=== PATIENT | female | born 1955 | race Caucasian/White ===

== ENCOUNTER 2018-10-15 04:23 | Observation (INO) | payer OTHER ==
[2018-10-15] MEDS ORDERED: NA CHLORIDE 0.9% 1,000 ML ONE (04:50)
[2018-10-15] MEDS ORDERED: ASPIRIN 81 MG CHEWABLE TABLET ONE (04:50)
[2018-10-15 04:54] LABS: Absolute Lymphocytes (CBC) 2.5 K/uL (0.7-4.9); Absolute Monocytes 0.6 K/uL (0.1-1.3); Absolute Neutrophil 4.6 K/uL (1.8-8.0); Basophils % 0.8 % (0-1.3); Eosinophils % 1.9 % (0-4.4); Hematocrit 39.8 % (36.0-45.0); Lymphocytes % 31.2 % (15.3-44.8); MPV 8.6 fL (7.6-11.3); Monocytes % 7.8 % (3.3-12.3); RBC Red Blood Cell Count 4.64 M/uL (3.86-4.86)
[2018-10-15 04:55] LABS: Protime INR 0.94
[2018-10-15 05:12] LABS: ALT/SGPT 27 U/L (12-78); AST/SGOT 13 U/L (15-37); Albumin 3.5 g/dL (3.4-5.0); Alkaline Phosphatase 111 U/L (45-117); BUN Blood Urea Nitrogen 27 mg/dL (7-18); Bicarbonate 30 mmol/L (21-32); Bilirubin Direct 0.1 mg/dL (0-0.2); Bilirubin Total 0.3 mg/dL (0.2-1.0); Glucose Level 138 mg/dL (74-106); Lipase 336 U/L (73-393); Magnesium 1.8 mg/dL (1.8-2.4); NT PRO-BNP 17 pg/mL (<125); Potassium 3.6 mmol/L (3.5-5.1); Protein, Total 7.3 g/dL (6.4-8.2); Sodium Level 141 mmol/L (136-145); Troponin (Emerg Dept Use Only) < 0.02 ng/mL (0.0-0.045)
--- NOTE | 2018-10-15 05:25 | EDPHYS ---
Physician Documentation [facility] Name: Mamie Jolly Age: 62 yrs Sex: Female : 1955 Arrival Date: 10/15/2018 Time: 04:24 Bed 2 Private MD: Chi Montiel V ED Physician Jorge Carrasco HPI: 10/15 05:18 This 62 yrs old Female presents to ER via Wheelchair with complaints of Chest karon Pain. 05:18 The patient or guardian reports chest pain that is located primarily in the anterior karon chest wall, left. Onset: 1 day(s) ago. The pain radiates to Associated signs and symptoms: The patient has no apparent associated signs or symptoms. The chest pain is described as sharp. Severity of pain: At its worst the pain was moderate. The patient has experienced similar episodes in the past, several times. Historical: - Allergies: 04:55 HORSE/EQUINE PRODUCT DERIVATIVES; lp1 - Home Meds: 04:55 gabapentin oral oral twice a day [Active]; omeprazole 40 mg Oral cpDR 1 cap once daily lp1 [Active]; atorvastatin 80 mg oral tab 1 tab once daily [Active]; levothyroxine 50 mcg tab 1 tab once daily [Active]; duloxetine 60 mg oral cpDR 1 cap once daily [Active]; Saxenda 3 mg/0.5 mL (18 mg/3 mL) subcutaneous pnij once daily [Active]; Celebrex 200 mg Oral cap 2 cap once daily [Active]; tizanidine 4 mg oral tab 1 tab every 8 hours for Muscle Spasm [Active]; Restasis ophthalmic ophthalmic [Active]; - PMHx: 04:55 Hypothyroidism; neuropathy; Hyperlipidemia; Diabetes - IDDM; lp1 - PSHx: 04:55 Knee surgery; D \T\ C; Removal of thyroid tumor; lp1 - Immunization history:: Adult Immunizations up to date. - Social history:: Smoking status: Patient/guardian denies using tobacco. - Ebola Screening: : No symptoms or risks identified at this time. ROS: 05:22 Constitutional: Negative for fever, chills, and weight loss, Eyes: Negative for injury, karon pain, redness, and discharge, ENT: Negative for injury, pain, and discharge, Neck: Negative for injury, pain, and swelling, Abdomen/GI: Negative for abdominal pain, nausea, vomiting, diarrhea, and constipation, Back: Negative for injury and pain, : Negative for injury, bleeding, discharge, and swelling, MS/Extremity: Negative for injury and deformity, Skin: Negative for injury, rash, and discoloration, Neuro: Negative for headache, weakness, numbness, tingling, and seizure, Psych: Negative for depression, anxiety, suicide ideation, homicidal ideation, and hallucinations, Allergy/Immunology: Negative for hives, rash, and allergies, Endocrine: Negative for neck swelling, polydipsia, polyuria, polyphagia, and marked weight changes, Hematologic/Lymphatic: Negative for swollen nodes, abnormal bleeding, and unusual bruising. 05:22 Cardiovascular: Positive for chest pain. 05:22 Respiratory: Positive for cough, shortness of breath, at rest. Exam: 05:22 Constitutional: This is a well developed, well nourished patient who is awake, alert, karon and in no acute distress. Head/Face: Normocephalic, atraumatic. Eyes: Pupils equal round and reactive to light, extra-ocular motions intact. Lids and lashes normal. Conjunctiva and sclera are non-icteric and not injected. Cornea within normal limits. Periorbital areas with no swelling, redness, or edema. ENT: Nares patent. No nasal discharge, no septal abnormalities noted. Tympanic membranes are normal and external auditory canals are clear. Oropharynx with no redness, swelling, or masses, exudates, or evidence of obstruction, uvula midline. Mucous membranes moist. Neck: Trachea midline, no thyromegaly or masses palpated, and no cervical lymphadenopathy. Supple, full range of motion without nuchal rigidity, or vertebral point tenderness. No Meningismus. Chest/axilla: Normal chest wall appearance and motion. Nontender with no deformity. No lesions are appreciated. Abdomen/GI: Soft, non-tender, with normal bowel sounds. No distension or tympany. No guarding or rebound. No evidence of tenderness throughout. Back: No spinal tenderness. No costovertebral tenderness. Full range of motion. Female : Normal external genitalia. Skin: Warm, dry with normal turgor. Normal color with no rashes, no lesions, and no evidence of cellulitis. MS/ Extremity: Pulses equal, no cyanosis. Neurovascular intact. Full, normal range of motion. Neuro: Awake and alert, GCS 15, oriented to person, place, time, and situation. Cranial nerves II-XII grossly intact. Motor strength 5/5 in all extremities. Sensory grossly intact. Cerebellar exam normal. Normal gait. Psych: Awake, alert, with orientation to person, place and time. Behavior, mood, and affect are within normal limits. 05:22 Cardiovascular: Rate: normal, Rhythm: regular, Pulses: Pulses are 4+ in bilateral radial, brachial, femoral, popliteal, posterior tibial and and dorsalis pedis arteries.. Heart sounds: normal, normal S1and S2, no S3 or S4, no murmur, no rub, no gallop, Edema: is not appreciated, JVD: is not appreciated. Vital Signs: 04:30 BP 145 / 82; Pulse 77; Resp 19; Temp 98(O); Pulse Ox 98% on R/A; Weight 96.16 kg; lp1 Height 4 ft. 10 in. (147.32 cm); Pain 8/10; 05:00 BP 127 / 73; Pulse 69; Resp 17; Pulse Ox 95% on R/A; lp1 05:30 BP 116 / 68; Pulse 67; Resp 12; Pulse Ox 94% on R/A; lp1 06:00 BP 121 / 70; Pulse 65; Resp 15; Pulse Ox 95% on R/A; lp1 06:30 BP 123 / 76; Pulse 66; Resp 13; Pulse Ox 95% on R/A; lp1 07:00 BP 120 / 71; Pulse 67; Resp 17; Temp 97.9; Pulse Ox 92% on R/A; Pain 5/10; ch 04:30 Body Mass Index 44.31 (96.16 kg, 147.32 cm) lp1 MDM: 04:32 Patient medically screened. [facility] 05:32 Data reviewed: vital signs, nurses notes, lab test result(s), EKG, radiologic studies, [facility] CT scan, plain films. 10/15 04:34 Order name: Lipase; Complete Time: 05:15 karon 10/15 04:34 Order name: Basic Metabolic Panel; Complete Time: 05:15 [facility] 10/15 04:34 Order name: CBC with Diff; Complete Time: 05:15 [facility] 10/15 04:34 Order name: LFT's; Complete Time: 05:15 [facility] 10/15 04:34 Order name: Magnesium; Complete Time: 05:15 karon 10/15 04:34 Order name: NT PRO-BNP; Complete Time: 05:15 karon 10/15 04:34 Order name: PT-INR; Complete Time: 05:15 10/15 04:34 Order name: Troponin (emerg Dept Use Only); Complete Time: 05:15 10/15 04:34 Order name: XRAY Chest (1 view) 10/15 04:34 Order name: Urine Culture 10/15 05:18 Order name: CT Aorta for Dissection 10/15 07:14 Order name: US Extremity Venous W Compression Eddie 10/15 04:34 Order name: EKG; Complete Time: 04:35 karon 10/15 04:34 Order name: Cardiac monitoring; Complete Time: 04:47 10/15 04:34 Order name: EKG - Nurse/Tech; Complete Time: 04:48 10/15 04:34 Order name: IV Saline Lock; Complete Time: 04:48 10/15 04:34 Order name: Labs collected and sent; Complete Time: 04:48 10/15 04:34 Order name: O2 Per Protocol; Complete Time: 04:48 10/15 04:34 Order name: O2 Sat Monitoring; Complete Time: 04:48 karon 10/15 05:29 Order name: CONS Physician Consult EDMS Administered Medications: 04:38 Drug: NS 0.9% 1000 ml Route: IV; Rate: 125 ml/hr; Site: right antecubital; ca1 07:49 Follow up: IV Status: Infusion continued upon admission; IV Intake: 300ml 04:38 Drug: Aspirin Chewable Tablet 162 mg Route: PO; ca1 05:30 Follow up: Response: No adverse reaction lp1 05:27 Drug: morphine 2 mg Route: IVP; Site: right antecubital; lp1 06:22 Follow up: Response: No change in condition; Pain is unchanged, physician notified lp1 05:27 Drug: Zofran 4 mg Route: IVP; Site: right antecubital; lp1 06:23 Follow up: Response: No adverse reaction lp1 06:22 Drug: morphine 2 mg Route: IVP; Site: right antecubital; lp1 07:49 Follow up: Response: No adverse reaction; Marked relief of symptoms ch 06:22 Drug: Lovenox 1 mg/kg Route: Sub-Q; Site: right lower abdomen; lp1 06:54 Follow up: Response: No adverse reaction lp1 Disposition: 10/15/18 05:25 Hospitalization ordered by Chi Montiel for Observation. Preliminary diagnosis are Chest pain, unspecified, Chest pain on breathing, Solitary pulmonary nodule. - Bed requested for Telemetry/MedSurg (observation). - Status is Observation. - Condition is Stable. - Problem is new. - Symptoms have improved. UTI on Admission? No Signatures: Dispatcher [employer] EDLisbeth Everett RN RN Jorge Bacon MD MD cha Pena, Laura RN RN lp1 Mary Jo Bhandari RN RN Margarita Driver RN RN ca1 Corrections: (The following items were deleted from the chart) 05:37 05:25 Hospitalization Ordered by Chi Montiel MD for Observation. Preliminary diagnosis cg is Chest pain, unspecified; Chest pain on breathing. Bed requested for Telemetry/MedSurg (observation). Status is Observation. Condition is Stable. Problem is new. Symptoms have improved. UTI on Admission? No. karon 08:05 05:37 10/15/2018 05:25 Hospitalization Ordered by Chi Montiel MD for Observation. [facility] Preliminary diagnosis is Chest pain, unspecified; Chest pain on breathing. Bed requested for Telemetry/MedSurg (observation). Status is Observation. Condition is Stable. Problem is new. Symptoms have improved. UTI on Admission? No. cg 08:09 08:05 10/15/2018 05:25 Hospitalization Ordered by Chi Montiel MD for Observation. Preliminary diagnosis is Chest pain, unspecified; Chest pain on breathing; Solitary pulmonary nodule. Bed requested for Telemetry/MedSurg (observation). Status is Observation. Condition is Stable. Problem is new. Symptoms have improved. UTI on Admission? No. karon
--- NOTE | 2018-10-15 05:25 | ER ---
Nurse's Notes [facility] Name: Mamie Jolly Age: 62 yrs Sex: Female : 1955 Arrival Date: 10/15/2018 Time: 04:24 Bed 2 Private MD: Chi Montiel V Diagnosis: Chest pain, unspecified;Chest pain on breathing;Solitary pulmonary nodule Presentation: 10/15 04:30 Presenting complaint: Patient states: Chest pain that began yesterday afternoon and lp1 worsening; patient clutching chest on arrival to ED; States pain increased on respiration. Transition of care: patient was not received from another setting of care. Onset of symptoms was October 14, 2018. Risk Assessment: Do you want to hurt yourself or someone else? Patient reports no desire to harm self or others. Initial Sepsis Screen: Does the patient meet any 2 criteria? No. Patient's initial sepsis screen is negative. Does the patient have a suspected source of infection? No. Patient's initial sepsis screen is negative. Care prior to arrival: None. 04:30 Method Of Arrival: Wheelchair lp1 04:30 Acuity: CAROLYN 3 lp1 Historical: - Allergies: 04:55 HORSE/EQUINE PRODUCT DERIVATIVES; lp1 - Home Meds: 04:55 gabapentin oral oral twice a day [Active]; omeprazole 40 mg Oral cpDR 1 cap once daily lp1 [Active]; atorvastatin 80 mg oral tab 1 tab once daily [Active]; levothyroxine 50 mcg tab 1 tab once daily [Active]; duloxetine 60 mg oral cpDR 1 cap once daily [Active]; Saxenda 3 mg/0.5 mL (18 mg/3 mL) subcutaneous pnij once daily [Active]; Celebrex 200 mg Oral cap 2 cap once daily [Active]; tizanidine 4 mg oral tab 1 tab every 8 hours for Muscle Spasm [Active]; Restasis ophthalmic ophthalmic [Active]; - PMHx: 04:55 Hypothyroidism; neuropathy; Hyperlipidemia; Diabetes - IDDM; lp1 - PSHx: 04:55 Knee surgery; D \T\ C; Removal of thyroid tumor; lp1 - Immunization history:: Adult Immunizations up to date. - Social history:: Smoking status: Patient/guardian denies using tobacco. - Ebola Screening: : No symptoms or risks identified at this time. Screenin:56 Abuse screen: Denies threats or abuse. Denies injuries from another. Nutritional lp1 screening: No deficits noted. Tuberculosis screening: No symptoms or risk factors identified. Fall Risk None identified. Assessment: 04:45 General: Appears uncomfortable, Behavior is anxious. Pain: Complains of pain in lp1 anterior aspect of left upper chest Pain radiates to left arm Pain currently is 8 out of 10 on a pain scale. Quality of pain is described as sharp, stabbing, Pain began gradually, 1 day ago. Is intermittent, Aggravated by increased activity. Neuro: Level of Consciousness is awake, alert, obeys commands, Oriented to person, place, time, situation. Cardiovascular: Reports chest pain, shortness of breath, Patient's skin is warm and dry. Rhythm is sinus rhythm. Respiratory: Reports pain with respiration Respiratory effort is even, Respiratory pattern is regular, Breath sounds are clear bilaterally. GI: Abdomen is obese. : No deficits noted. EENT: No deficits noted. Derm: Skin is intact, Skin is dry, Skin is normal. Musculoskeletal: Circulation, motion, and sensation intact. 06:00 Reassessment: Patient returned from CT. lp1 06:00 General: Behavior is calm. lp1 07:00 Reassessment: Patient appears in no apparent distress at this time. Patient and/or ch family updated on plan of care and expected duration. Pain level reassessed. Patient is alert, oriented x 3, equal unlabored respirations, skin warm/dry/pink. Patient states feeling better. Patient states symptoms have improved. Reassessment: pt chest wall is tender to palpation, and states the pain gets worse when she lays down flat. states it feels like pressure. General: Appears in no apparent distress. comfortable, Behavior is calm, cooperative. Pain: Complains of pain in left scapular area, anterior aspect of left upper chest and mid-sternal area Pain currently is 5 out of 10 on a pain scale. Pain began gradually, 2-3 days ago. Neuro: No deficits noted. Cardiovascular: Reports chest pain, Heart tones S1 S2 present Capillary refill < 3 seconds in bilateral fingers toes Clubbing of nail beds is absent JVD is absent Patient's skin is warm and dry. Pulses are all present. Edema is absent. Rhythm is sinus rhythm. Respiratory: Airway is patent Trachea midline Respiratory effort is even, unlabored, Respiratory pattern is regular, Breath sounds are clear bilaterally. GI: Abdomen is round obese, Bowel sounds present X 4 quads. 07:48 Reassessment: awaiting pt to return from US prior to admission. Vital Signs: 04:30 BP 145 / 82; Pulse 77; Resp 19; Temp 98(O); Pulse Ox 98% on R/A; Weight 96.16 kg; lp1 Height 4 ft. 10 in. (147.32 cm); Pain 8/10; 05:00 BP 127 / 73; Pulse 69; Resp 17; Pulse Ox 95% on R/A; lp1 05:30 BP 116 / 68; Pulse 67; Resp 12; Pulse Ox 94% on R/A; lp1 06:00 BP 121 / 70; Pulse 65; Resp 15; Pulse Ox 95% on R/A; lp1 06:30 BP 123 / 76; Pulse 66; Resp 13; Pulse Ox 95% on R/A; lp1 07:00 BP 120 / 71; Pulse 67; Resp 17; Temp 97.9; Pulse Ox 92% on R/A; Pain 5/10; ch 04:30 Body Mass Index 44.31 (96.16 kg, 147.32 cm) lp1 ED Course: 04:24 Patient arrived in ED. es 04:24 Chi Montiel MD is Private Physician. es 04:30 Patient maintains SpO2 saturation greater than 95% on room air. lp1 04:30 Arm band placed on right wrist. lp1 04:32 Jorge Carrasco MD is Attending Physician. karon 04:35 Inserted saline lock: 20 gauge in right antecubital area, using aseptic technique. lp1 Blood collected. 04:35 Initial lab(s) drawn, by wi, sent to lab. lp1 04:35 Patient has correct armband on for positive identification. Placed in gown. Bed in low lp1 position. Call light in reach. nurse monitoring on. Pulse ox on. NIBP on. 04:43 XRAY Chest (1 view) In Process Unspecified. EDMS 04:49 Triage completed. lp1 05:19 Elsy Watson, ZENAIDA is Primary Nurse. lp1 05:25 Chi Montiel MD is Hospitalizing Provider. karon 05:[address] via stretcher. lp1 05:52 No provider procedures requiring assistance completed. Patient admitted, IV remains in lp1 place. 06:03 CT completed. Patient tolerated procedure well. Patient moved back from CT. 07:23 Primary Nurse role handed off by Elsy Watson, ZENAIDA 07:23 Lisbeth Rowley, RN is Primary Nurse. Administered Medications: 04:38 Drug: NS 0.9% 1000 ml Route: IV; Rate: 125 ml/hr; Site: right antecubital; ca1 07:49 Follow up: IV Status: Infusion continued upon admission; IV Intake: 300ml 04:38 Drug: Aspirin Chewable Tablet 162 mg Route: PO; ca1 05:30 Follow up: Response: No adverse reaction lp1 05:27 Drug: morphine 2 mg Route: IVP; Site: right antecubital; lp1 06:22 Follow up: Response: No change in condition; Pain is unchanged, physician notified lp1 05:27 Drug: Zofran 4 mg Route: IVP; Site: right antecubital; lp1 06:23 Follow up: Response: No adverse reaction lp1 06:22 Drug: morphine 2 mg Route: IVP; Site: right antecubital; lp1 07:49 Follow up: Response: No adverse reaction; Marked relief of symptoms 06:22 Drug: Lovenox 1 mg/kg Route: Sub-Q; Site: right lower abdomen; lp1 06:54 Follow up: Response: No adverse reaction 1 Intake: 07:49 IV: 300ml; Total: 300ml. Outcome: 05:25 Decision to Hospitalize by Provider. [facility] 05:52 Condition: stable lp1 06:23 Instructed on the need for admit. lp1 07:48 Admitted to Med/surg accompanied by [facility], via wheelchair, room 219, with chart, Report called to Karely 07:48 Condition: stable 08:09 Patient left the ED. Signatures: Dispatcher [employer] EDLisbeth Everett, RN RN Jorge Bacon MD MD cha Salyer, Edna es Hagler, Ervin Elsy Watson, RN RN lp1 Margarita Sanders RN RN ca1
[2018-10-15] MEDS ORDERED: ONDANSETRON 4 MG/2 ML VIAL ONE (05:31)
[2018-10-15] MEDS ORDERED: MORPHINE 4 MG/ML SYR ONE (05:31)
[2018-10-15] MEDS ORDERED: ENOXAPARIN 100 MG/ML SYR SQ ONE (06:25)
--- NOTE | 2018-10-15 07:46 | EKG ---
Test Date: 2018-10-15 Test Time: 04:30:03 Teaching Assistant: MATHEW MEASUREMENT RESULTS: Intervals: Rate: 69 NH: 158 QRSD: 84 QT: 402 QTc: 430 [place]: P: 54 NH: 158 QRS: 1 T: 57 INTERPRETIVE STATEMENTS: Normal sinus rhythm Normal ECG Compared to ECG 02/24/2017 23:27:45 Sinus bradycardia no longer present Electronically Signed On 10-15-18 07:45:38 [employer] by Curtis Grady
[2018-10-15] MEDS ORDERED: ONDANSETRON 4 MG/2 ML VIAL IV PRN (08:02)
[2018-10-15] MEDS ORDERED: D50W 25 GM/50 ML SYRINGE IV PRN (08:02)
[2018-10-15] MEDS ORDERED: MORPHINE 4 MG/ML SYR IV PRN (08:02)
[2018-10-15] MEDS ORDERED: GLUCAGON 1 MG/VIAL IM PRN (08:02)
[2018-10-15] MEDS: INSULIN -REGULAR HUMAN 50 UNIT/0.5 ML ML SQ SCH ×3 (08:02→16:30)
--- NOTE | 2018-10-15 08:22 | RAD REPORT ---
EXAM DESCRIPTION: CT - Angio Aorta For Dissection - 10/15/2018 6:02 am CLINICAL HISTORY: . Chest and abdominal pain COMPARISON: 2016 CT TECHNIQUE: Computed tomography angiography of the chest, abdomen pelvis were obtained. 100 cc Isovue 370 was administered intravenously. Coronal and sagittal reconstruction were performed.Preliminary r eport generated by virtual radiologic and review prior to dictation MIP 3D reconstruction was performed All CT scans are performed using dose optimization technique as appropriate and may include automated exposure control or mA/KV adjustment according to patient size. FINDINGS: An aortic dissection is not seen. An aortic aneurysm is not displayed. The celiac, SMA and RAVIN are patent . A lung consolidation is not present. A pericardial effusion is not seen. A pleural effusion is not n oted. Subcentimeter bilateral lung nodules are unchanged likely benign The liver,spleen, pancreas adrenals kidneys demonstrate no significant abnormality. The appendix is normal. There no evidence diverticulitis. A tiny umbilical hernia IMPRESSION: Negative for an aortic dissection.
[2018-10-15] MEDS ORDERED: ASPIRIN EC 81 MG TAB PO SCH (09:00)
[2018-10-15] MEDS ORDERED: FAMOTIDINE 20 MG/2 ML VIAL IV SCH (09:00)
--- NOTE | 2018-10-15 09:03 | RAD REPORT ---
EXAM DESCRIPTION: Ulysses Single View10/15/2018 4:45 am CLINICAL HISTORY: Chest pain COMPARISON: 2017 FINDINGS: The lungs appear clear of acute infiltrate. The heart is normal size IMPRESSION: No acute abnormalities displayed
--- NOTE | 2018-10-15 09:24 | RAD REPORT ---
EXAM DESCRIPTION: USExtrem Venous W Compress Bil10/15/2018 7:48 am CLINICAL HISTORY: Leg pain COMPARISON: 2006 FINDINGS: The common femoral, superficial femoral, popliteal and posterior tibial veins bilaterally are compressible and demonstrate augmentation. Doppler demonstrates good flow. IMPRESSION: No evidence of deep venous thrombosis involving either lower extremity.
[2018-10-15 10:12] VITALS: O2SAT 95; BMI 45.3
[2018-10-15] MEDS: ACETAMINOPHEN 500 MG TAB PO PRN ×2 (10:21→18:12)
[2018-10-15 12:09] LABS: Urine Appearance CLEAR; Urine Bilirubin NEGATIVE (NEG); Urine Blood NEGATIVE (NEG); Urine Color YELLOW; Urine Glucose NEGATIVE (NEG); Urine Protein NEGATIVE (NEG); Urine Specific Gravity >=1.030 (1.005-1.030); Urine pH 5.5 (5.0-7.0)
[2018-10-15 12:15] LABS: Urine Microscopic Reflex NO UMIC
--- NOTE | 2018-10-15 13:09 | P.SSS ---
Patient History Date of Service: 10/15/18 Reason for admission: CHEST AND SHOULDER PAIN History of Present Illness: MS BAILEY IS 62 YEARS OLD LADY WITH DM, CHR PAIN, WHO HAS HAD PAIN FOR 3 DAYS IN CHEST AND SHOULDER. THIS PAIN IS CONSTANT AND SHE HAS PAIN WHEN SHE MOVES IN BED OR MOVES SHOULDER. SHE HAS NO CARDIAC SYMPTOMS ADMISSION WAS FROM ER FOR CHEST PAIN, MALENA. I WILL NOT ADMIT HER IF SHE CAME TO OFFICE. Allergies HORSE/EQUINE PRO Allergy (Uncoded 07/10/17 10:57) Unknown Home Medications: Atorvastatin Calcium [Lipitor] 80 mg PO BEDTIME 10/15/18 Celecoxib [Celebrex] 200 mg PO BID 10/15/18 Codeine/APAP [Tylenol W/Codeine #3 tab] 1 tab PO Q6HP PRN #40 tab 10/15/18 Cyclosporine [Restasis] 1 drop EACH EYE BID 10/15/18 Duloxetine [Cymbalta Dalayed Release Pellets] 60 mg PO DAILY 10/15/18 Gabapentin [Neurontin] 1,400 mg PO BID 10/15/18 Levothyroxine Sodium [Synthroid] 50 mg PO DAILY 10/15/18 Liraglutide [Saxenda] 3 mg SQ DAILY 10/15/18 Omeprazole [Prilosec] 40 tab PO DAILY 10/15/18 Tizanidine [Zanaflex*] 4 mg PO TID 10/15/18 - Past Medical/Surgical History Has patient received pneumonia vaccine in the past: No Diabetic: Yes -: miscarriage 1980 -: Right knee medial Meniscus Tear January 2015/ Sep 2014 -: cataract removal May 2017 -: Right knee replacement April 2015 -: Carpal Tunnel Release Right Hand May 2012 -: 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 moist/pink, EOMI, Sclerae nonicteric Neck: Supple, 2+ carotid pulse no bruit, No LAD, Without JVD or thyroid abnormality Respiratory: Clear to auscultation bilaterally, Normal air movement Cardiovascular: Regular rate/rhythm, Normal S1 S2 Gastrointestinal: Normal bowel sounds, No tenderness Musculoskeletal: No tenderness Integumentary: No rashes Neurological: Normal gait, Normal speech, Normal strength at 5/5 x4 extr, Normal tone, Normal affect Lymphatics: No axilla or inguinal lymphadenopathy - Studies Laboratory Data (last 24 hrs) 10/15/18 04:35: PT 11.1, INR 0.94 10/15/18 04:35: WBC 8.0, Hgb 13.4, Hct 39.8, Plt Count 318 10/15/18 04:35: Sodium 141, Potassium 3.6, BUN 27 H, Creatinine 0.77, Glucose 138 H, Magnesium 1.8, Total Bilirubin 0.3, AST 13 L, ALT 27, Alkaline Phosphatase 111, Lipase 336 - Diagnosis (Problem(s)) (1) Costochondritis Current Visit: Yes Status: Acute Plan: N0 INJURY, NO EXERSION, NO LIFTING. 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 SHE HAS NO CARDIAC SYMPTOMS EKG IS NORMAL. DC HOME. (2) Shoulder pain Current Visit: Yes Status: Acute (3) Diabetes Current Visit: Yes Status: Acute - Disposition Disposition: ROUTINE DISCHARGE Condition: FAIR Diet: AHA
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
[2018-10-15 17:54] VITALS: BP 140/72; TEMP 97.4
[2018-10-15] MEDS ORDERED: ENOXAPARIN 100 MG/ML SYR SQ SCH (18:00)
[2018-10-15] MEDS ORDERED: DEXAMETHASONE 4 MG/ML VIAL IV SCH (18:00)
== END 2018-10-15 18:30 | disposition home or self-care (01) ==
LOC: ER 04:23 → ERHOLD 05:36 → 2ND 07:49
PROVIDERS: ADMIT Internal Medicine; ATTEND Internal Medicine
DX: M94.0 Chondrocostal junction syndrome [Tietze] (principal); E11.9 Type 2 diabetes mellitus without complications; E66.9 Obesity, unspecified; Z68.42 Body mass index [BMI] 45.0-49.9, adult; Z96.651 Presence of right artificial knee joint; E78.5 Hyperlipidemia, unspecified; E03.9 Hypothyroidism, unspecified; K21.9 Gastro-esophageal reflux disease without esophagitis
CPT/HCPCS: 36415; 71045; 71275; 74175; 80048; 80076; 81003; 82962; 83690; 83735; 83880; 84484; 85025; 85610; 93005; 93970; 96361; 96372; 96374; 96375; 99285; G0378; J1650; J2405; J7030; Q9967

== ENCOUNTER 2021-10-23 17:19 | Emergency (ER) | payer OTHER ==
--- OUTSIDE RECORDS SUMMARY | 2021-10-23 17:21 | XMS REPORT | Continuity of Care Document ---
:1955 Author Organization [facility] t Address [address] [place] [address] [place] [address] Care Team Providers Name Role Phone Tiana Cordero Primary Care Physician Doctor Unassigned, Name Attending Clinician Unavailable HU Attending Clinician Unavailable Payers Payer Name Policy Type Policy Number Effective Date Expiration Date Amanda POP O [id number] 2000 00:00:00 Problems Condition Condition Condition Status Onset Resolution Last Treating Co mments Source Name Details Category Date Date Treatment Clinician Date No known No known Disease Unive rs active active ity of problems problems [facility] [place] [facility] Allergies, Adverse Reactions, Alerts Allergy Allergy Status Severity Reaction(s) Onset Inactive Treating Comm ents Source Name Type Date Date Clinician Horse/Eq DA Active SV 2018-10 [facility] uine 10-30 Containi 00:00: Orthope ng 00 dic Products [facility]osp[facility] doxycycl DA Active SV 2018-10 [facility] ine 10-30 00:00: Orthope 00 dic Hospita [facility] Horse/Eq DA Active SV 2018-10 [facility] uine Containi 00:00: Orthope ng 00 dic Products Hospita l doxycycl DA Active SV 2018-10 [facility] ine 0 00:00: Orthope 00 dic Hospita l Horse/Eq DA Active SV [facility] uine 03-15 Containi 00:00: Orthope ng 00 dic Products Hospita l doxycycl DA Active SV [facility] ine 03-15 00:00: Orthope 00 dic Hospita l Horse/Eq DA Active U 2019-0 [facility] uine 4-25 [place] Containi 00:00: Orthope ng 00 dic Products Hospita l Horse/Eq DA Active U 2019- [facility] uine 2-08 [place] Containi 00:00: Orthope ng 00 dic Products Hospita l Horse/Eq DA Active U 2017-0 [facility] uine 2-16 [place] Containi 00:00: Orthope ng 00 dic Products Hospita l Equine Propensi Active Unknown - Childhood Un vance Protein ty to See comments 9-10 ity of adverse 00:00: [place] reaction 00 Medical s Branch Social History Social Habit Start Date Stop Date Quantity Comments Source Sex Assigned At [birth year] [facility] 00:00:00 00:00:00 Medical Branch Smoking Status Start Date Stop Date Source Unknown if ever smoked [facility] Medications Ordered Filled Start Stop Current Ordering Indication Dosage Frequency Signature Comments Components Source Medication Medication Date Date Medication? Clinician (SIG) Name Name DULOXETINE Yes Take by Uni vers HCL 9-10 mouth. ity of (CYMBALTA 20:39: [facility]) [address] [place] [address] TOPIRAMATE Yes Take by Uni vers (TOPAMAX 9-10 mouth. ity of ORAL) 20:39: [address] LIRAGLUTIDE Yes inject Univ ers (VICTOZA 9-10 under the ity of 2-DAISY SC) 20:39: skin. [address] OMEPRAZOLE, Yes Univer s BULK, MISC 9-10 ity of 20:39: [address] LISINOPRIL Yes Take by Uni vers ORAL 9-10 mouth. ity of 20:39: [address] ERGOCALCIFE Yes Take by Un vance ROL, 9-10 mouth. ity of VITAMIN D2, 20:39: [place] (VITAMIN D [address] [place] [address] ORAL) Branch GABAPENTIN Yes Take by Uni vers ORAL 9-10 mouth. ity of 20:39: [address] etodolac Yes 300mg Take 1 Univer s (LODINE) 9-10 capsule by ity o f 300 mg 00:00: mouth 3 [place] capsule 00 (three) Medical times Branch daily with meals. acetaminoph Yes 1{tbl} Take 1 Un vance en-codeine 9-10 tablet by ity of (TYLENOL-CO 00:00: mouth [place] DEINE #3) 00 every 6 Medical 300-30 mg (six) Branch tablet hours as needed for Pain (scale 4-6). Immunizations Ordered Filled Immunization Date Status Comments Sour e Immunization Name Name Td 2016-06-21 Completed [facility] 00:00:00 [facility] [place] [facility] Vital Signs Vital Name Observation Time Observation Value Comments Source HEIGHT 2020-07-17 08:01:39 146.6 cm WEIGHT 2020-07-17 08:01:39 87.7 kg Procedures Procedure Date / Time Performed Performing Clinician [facility] e REFERRAL- 2021-10-18 06:01:00 Doctor Unassigned, No [facility] REQUEST/RESPONSE Name [facility] Encounters Start End Encounter Admission Attending Care Care Encounter Source Date/Time Date/Time Type Type Clinicians Facility Department ID 2021-10-18 2021-10-18 Orders Doctor YAMILETH [id number] Univers 00:00:00 00:00:00 Only Unassigned, CRISTINE [id number] ity of [facility] [id number] Ehsan as [id number] [facility] dang 009 Branch 2020-07-17 2020-07-18 Outpatient HOLLY CANCINO MDA KUMAR [id number] 07:50:48 07:07:13 Miki o andrew 2020-07-16 2020-07-16 Outpatient HOLLY CANCINO MDA KUMAR [id number] MD 07:51:13 23:59:00 Miki o andrew 2020-07-16 2020-07-16 Outpatient HOLLY CANCINO MDA KUMAR [id number] MD 08:55:40 08:55:40 Miki o andrew 2020-07-16 2020-07-16 Outpatient HOLLY CANCINO MDA KUMAR [id number] MD 08:15:24 08:15:24 Miki o andrew Results Test Description Test Time Test Comments Results Result [facility] e Comments - XR FLUORO NDL 2019-08-31 Patient Name: 19:48:00 ABHI BAILEY Unit No: [id number] EXAMS: CPT CODE: [id number] XR FLUORO NDL 98783 Fluoroscopically guided injection of the left first through third TMT joints and left first MTP joint with steroid and lidocaine COMPARISON: No prior exams available. FINDINGS: After informed consent was obtained a needle was placed in the left first through third TMT joints and left first MTP joint with fluoroscopic guidance. Its position was confirmed by injecting Isovue 300 and obtaining an AP radiograph. Subsequently 2 mL of Kenalog 40 mg per cc and 2 mL of 1 percent lidocaine was injected. No immediate complications were encountered. 48 seconds of fluoroscopy time was utilized. IMPRESSION: Technically successful steroid injection of the left first through third TMT joints and left first MTP joint at 1948 Reported and signed by: Ayan Mendoza M.D. CC: Steve Colunga MD Technologist: RT Jane.(R) Transcribed D/ (1947) t.HANGR.SLJ [facility] NAME: ABHI BAILEY [address] [facility] PHYS: Steve Wooten MD : 1955 AGE: 63 SEX: F [place] [address] LOC: Y.RAD PHONE #: [phone] EXAM DATE: 08/30/2019 STATUS: DEP CLI FAX #: [phone] RAD #: D/C DT PAGE 1 Signed Report Patient Name: ABHI BAILEY Unit No: [id number] EXAMS: CPT CODE: [id number] XR FLUORO NDL 62577 <Continued> Orig Print D/T: S: 08/31/2019 (1950) [facility] NAME: ABHI BAILEY [address] [facility] PHYS: Steve Wooten MD : 1955 AGE: 63 SEX: F [place] [address] LOC: Y.RAD PHONE #: [phone] EXAM DATE: 08/30/2019 STATUS: DEP CLI FAX #: [phone] RAD #: D/C DT PAGE 2 Signed Report - XR FLUOROSCOPY 2019-08-17 Patient Name: 0-60 MIN 09:37:00 ABHI BAILEY Unit No: [id number] EXAMS: CPT CODE: [id number] XR FLUOROSCOPY 0-60 MIN 90333 PROCEDURE: Right-sided radiofrequency ablation of the genicular nerves (4). CLINICAL DIAGNOSIS: Osteoarthritis. PHYSICIAN: Ayan Mendoza M.D. COMPLICATIONS: None. MEDICATIONS: IV Sedation provided by Anesthesiologist. 0.5 mL of Kenalog and 1 mL of 0.25% bupivacaine was injected into the locations of the radiofrequency ablation. FINDINGS: After informed consent, the patient was sterilely prepped and draped, and placed supine on the special procedures table. Using fluoroscopic guidance, an 18 gauge radiofrequency needle was inserted into the location of the genicular nerves in the region of the medial and lateral femoral metaphysis. The genicular nerve was also accessed along the medial border of the tibial metaphysis and along the central portion of the distal anterior femur. Additionally, the nerve from the rectus intermedius supplying the subpatellar plexus (suprapatellar branch) was accessed with a fourth needle. After appropriate placement of these needles under fluoroscopic observation, 2 mL of 1% lidocaine was injected at each location. Following this, radiofrequency neurotomy was performed at 80 degrees for 2 minutes and 45 seconds. After this, 0.5 mL of Kenalog and 1 mL of 0.25% bupivacaine was injected into each of the locations of radiofrequency neurotomy. The patient was then taken to recovery area for further monitoring before being sent home in good condition. IMPRESSION: Right knee radiofrequency neurotomy of the genicular nerves along the anterior portion of the distal femur, the medial and lateral femoral metaphysis and along the medial portion of the proximal tibial metaphysis as above using fluoroscopic guidance. A total of 4 nerves were treated. at 0937 Reported and signed by: Ayan Mendoza M.D. CC: Ayan Mendoza MD Technologist: KELLEY ROWLEY RT(R) Transcribed D/ (0937) Brigitte.[facility] NAME: ABHI BAILEY [address] [facility] PHYS: OLIVA - Ayan Mendoza : 1955 AGE: 63 SEX: F [place], [place] [address] LOC: Jose AlejandroOSU PHONE #: [phone] EXAM DATE: 08/08/2019 STATUS: [facility] FAX #: [phone] RAD #: D/C DT PAGE 1 Signed Report Patient Name: ABHI BAILEY Unit No: [id number] EXAMS: CPT CODE: [id number] XR FLUOROSCOPY 0-60 MIN 45853 <Continued> Orig Print D/T: S: 08/17/2019 (0940) [facility] NAME: ABHI BAILEY [address] [facility] PHYS: JONST.Ayan Anthony Daniel : 1955 AGE: 63 SEX: F [place], [place] [address] LOC: Jose AlejandroOSU PHONE #: [phone] EXAM DATE: 08/08/2019 STATUS: [facility] FAX #: [phone] RAD #: D/C DT PAGE 2 Signed Report - XR FLUORO NDL 2019-08-17 Patient Name: 09:35:00 ABHI BAILEY Unit No: [id number] EXAMS: CPT CODE: [id number] XR FLUORO NDL 72833 PROCEDURE: Marcaine block of the right genicular nerves (4). CLINICAL DIAGNOSIS: Osteoarthritis. PHYSICIAN: Ayan Mendoza M.D. COMPLICATIONS: None. FINDINGS: After informed consent, the patient was sterilely prepped and draped, and placed supine on the special procedures table. Using fluoroscopic guidance, a 25 gauge needle was inserted into the location of the genicular nerves in the region of the medial and lateral femoral metaphysis. The genicular nerve was also accessed along the medial border of the tibial metaphysis and along the central portion of the distal anterior femur. Additionally, the nerve from the rectus intermedius supplying the subpatellar plexus (suprapatellar branch) was accessed with a fourth needle. After appropriate placement of these needles under fluoroscopic observation, 2 cc of Marcaine was injected in each location. The patient was then taken to recovery area for further monitoring before being sent home in good condition. IMPRESSION: Marcaine block of the genicular nerves (4) of the right knee as described. at 0935 Reported and signed by: Ayan Mendoza M.D. CC: Temitope Crabtree MD Technologist: Ethan Mills(R) Transcribed D/ (0085) IleneSLJ [facility] NAME: ABHI BAILEY [address] [facility] PHYS: MICHAEL Temitope Crabtree : 1955 AGE: 63 SEX: F [place] [address] LOC: Y.RAD PHONE #: [phone] EXAM DATE: 08/03/2019 STATUS: DEP CLI FAX #: [phone] RAD #: D/C DT PAGE 1 Signed Report Patient Name: ABHI BAILEY Unit No: [id number] EXAMS: CPT CODE: [id number] XR FLUORO NDL 11892 <Continued> Orig Print D/T: S: 08/17/2019 (0939) [facility] NAME: ABHI BAILEY [address] [facility] PHYS: MICHAEL Temitope Crabtree : 1955 AGE: 63 SEX: F [place] [address] LOC: Y.RAD PHONE #: [phone] EXAM DATE: 08/03/2019 STATUS: DEP CLI FAX #: [phone] RAD #: D/C DT PAGE 2 Signed Report GLUBED 2019-08-08 16:02:00 Test Item Value Reference Range Interpretation Comme nts GLUBED (test code = GLUBED) 76 mg/dL 60-125 N [id number] 14:16:00 Test Item Value Reference Range Interpretation Comments GLUBED (test code = GLUBED) 84 mg/dL 60-125 N - MRI LOW EXT W/O CONT [id number] 14:38:00 Patient Name: ABHI BAILEY Unit No: [id number] EXAMS: CPT CODE: [id number] MRI [place] EXT W/[place] [address] MRI OF THE LEFT FOOT DIAGNOSIS: Degenerative change ispresent in the second third and fourth tarsometatarsal joints with osteophyte formation, subchondral cyst formation and spur formation. Marked subcutaneous edema is seen over the dorsal aspect of the foot. Effusions are present in the intermetatarsal bursa of the first and second web spaces consistent with bursitis and there is degenerative narrowing of the first metatarsophalangeal joint. COMMENT: Scans were performed in the sagittal, axial and coronal planes utilizing T1, T2 and inversion recovery images. Bony abnormalities are as described. There is no evidence for tendon tear. There is no evidence for ligamentous sprain or tear. The visualized portions of the plantar fascia are within normal limitsin appearance. at 1438 Reported and signedby: Philip Alcantara MD CC: Steve Colunga MD Technologist: Ethan Rg(R) Transcribed D/ (0052) DestinyL [facility] NAME: ABHI BAILEY [address] [facility] PHYS: Steve Wooten : 1955 AGE: 63 SEX: F [place] [address] LOC: Y.MRI PHONE #: [phone] EXAM DATE: 07/29/2019 STATUS: DEP CLI FAX #: [phone] RAD #: D/C DT PAGE 1 Signed Report Patient Name: ABHI BAILEY Unit No: [id number] EXAMS: CPT CODE: [id number] MRI [place]OW EXT W/[place] [address] <Continued> Orig Print D/T: S: 07/30/2019 (1954) [facility] NAME: ABHI BAILEY [address] [facility] PHYS: Steve Wooten Marc : 1955 AGE: 63 SEX: F [place] [address] LOC: Y.MRI PHON E #: [phone] EXAM DATE: 07/29/2019 STATUS: DEP CLI FAX #: [phone] RAD #: D/C DT PAGE 2 Signed [id number] 08:29:00 Test Item Value Reference Range Interpretation Comments GLUBED (test code = GLUBED) 97 mg/dL 60-125 N - XR FLUORO [id number] 17:21:00 Patient Name: ABHI BAILEY Unit No: [id number] EXAMS: CPT CODE: [id number] XR FLUORO NDL 36344 FLUOROSCOPICALLY GUIDED INJECTION OF THE RIGHT HIP WITH STEROID AND MARCAINE COMMENT: COMPARISON: No prior exams available. After informed consent was obtained a needle was placed in the hip joint with fluoroscopic guidance. Its position was confirmed by injecting Isovue 300 and obtaining an AP radiograph. 0.2 minutes of fluoroscopy time was utilized. Subsequently 2mL of Kenalog 40 mg per ccand 2mL of 0.75% Marcaine was injected. No immediate complications were encountered. at 1721 Reported and signed by: Philip Alcantara MD CC: Temitope Crabtree MD Technologist: Sadaf Nicole RT.(R) Transcribed D/ (3276) tMARYL [facility] NAME: ABHI BAILEY [address] [facility] PHYS: Temitope Roe : 1955 AGE: 63 SEX: F [place], [place] [address] LOC: Y.RAD PHONE #: [phone] EXAM DATE: 02/03/2019 STATUS: REG CLI FAX #: [phone] RAD #: D/C DT PAGE 1 Signed Report Patient Name: ABHI BAILEY Unit No: [id number] EXAMS: CPT CODE: [id number] XR FLUORO NDL 99963 <Continued> Orig Print D/T: S: 02/03/2019 (9016) [facility] NAME: ABHI BAILEY [address] [facility] PHYS: GOMMU.Temitope Cha : 1955 AGE: 63 SEX: F [place], [place] [address] LOC: JOSHUA PHONE #: [phone] EXAM DATE: 02/03/2019 STATUS: REG GENAI FAX #: [phone] RAD #: D/C DT PAGE 2 Signed Report- MRI LW JNT W/CONTRAST [id number] 07:48:00 Patient Name: ABHI BAILEY Unit No: [id number] EXAMS: CPT CODE: [id number] MRI LW JNT W/[place] [address] RIGHT HIP ARTHROGRAM STEROID AND LIDOCAINE INJECTION DIAGNOSIS: No definite abnormality. COMMENT: COMPARISON: No prior exams available. After informed consent was obtained a single- contrast arthrogram was performed with equal parts Isovue-300 and dilute gadolinium . 0.2 minutes of fluoroscopy time wasutilized. The normal recesses were opacified. 3 radiographs were obtained in neutral, internal and external rotation. Subsequently 2 mL of Kenalog 40 mg/mL and 2 mL of 1% lidocaine was injected into the joint. No immediate complications were encountered. MRI OF THE RIGHT HIP POST ARTHROGRAPHY TECHNIQUE: Multiplanarmultisequence MR images of the right hip were obtained following intra-articular administration of gadolinium contrast (see separately dictated procedure note for details). Images were then viewed on the PACS workstation in the axial, coronal and sagittal planes. COMPARISON: None available. FINDINGS: Bone: Marrow signal intensity is normal. Cartilage: There is partial thickness cartilage loss in the acetabulum superiorly. No loose bodies are seen. Labrum: Anterior superior labral tear is noted with a small para labral cyst. Femoroacetabular Impingement Assessment: Alpha Angle (normal= <55 degrees) : 56 degrees Lateral Center Edge Angle (normal=25-39 degrees): 57 degrees Extraarticular Hip Impingement: No osseous proliferation of the anterior inferior iliac spine. Iliopsoas tendon is unremarkable. No evidence of ischiofemoral imp ingement. Tendons: There is partial tearing of the gluteus minimus tendon insertion without retraction and of the hamstring tendon insertion without retraction.[facility] NAME: ABHI BAILEY [address] [facility] PHYS: Jori Marquez MD : 1955GE: 63 SEX: F [place] [address] LOC: YHeleneRAD BLAYNE NE #: [phone] EXAM DATE: 11/19/2018 STATUS: DEP CLI FAX #: [phone] RAD #: D/C DT PAGE 1 Signed Report (CONTINUED) Patient Name: ABHI BAILEY Unit No: [id number] EXAMS: CPT CODE: [id number] MRI LW JNT W/[place] [address] <Continued> Bursitis: No significant trochanteric or iliopsoas bursitis. Muscles: Signal intensity and volume are preserved. Other: Partially visualized intrapelvic structures are unremarkable. IMPRESSION: Impingement with labral tearing and degenerative change. Also noted are partial thickness tendon tears. at 0768 Reported and signed by: Philip Alcantara MD CC: Jori Valera MD Technologist:JOSH VAN RT(R) Transcribed D/ (0748) Larry [facility] NAME: ABHI BAILEY [address] [facility] PHYS: Jori Marquez MD : 1955 AGE: 63 SEX: F [place] [address] LOC: Jose AlejandroRAD PHONE #: [phone] EXAM DATE: 11/19/2018 STATUS: STAR CLI FAX #: [phone] RAD #: D/C DT PAGE 2 Signed Report Patient Name: ABHI BAILEY Unit No: [id number] EXAMS: CPT CODE: [id number] MRI LW JNT W/[place] [address] <Continued> Orig Print D/T:S: 11/22/2018 (0752) [facility] NAME: ABHI BAILEY [address] [facility] PHYS: Jori Marquez MD : 1955 AGE: 63 SEX: F [place] [address] LOC: Y.RAD PHONE #: [phone] EXAM DATE: 11/19/2018 STATUS: DEP CLI FAX #: [phone] #: D/C DT PAGE 3 Signed Report- XR ARTHROGRAM HIP W/O AN RT+2018-11-22 07:48:00 Patient Name: ABHI BAILEY Unit No: [id number] EXAMS: CPT CODE: [id number] XR ARTHROGRAM HIP W/O AN RT+ 00250 RIGHT HIP ARTHROGRAM STEROID AND LIDOCAINE INJECTION DIAGNOSIS: No definite abnormality. COMMENT: COMPARISON: No prior exams available. After informed consent was obtained a single-contrast arthrogram was performed with equal parts Isovue-300 and dilute gadolinium . 0.2 minutes of fluoroscopy time wasutilized. The normal recesses were opacified. 3 radiographs were obtained in neutral, internal and external rotation. Subsequently 2 mL of Kenalog 40 mg/mL and 2 mL of 1% lidocaine was injected into the joint. No immediate complications were encountered. MRI OF THE RIGHT HIP POST ARTHROGRAPHY TECHNIQUE: Multiplanarmultisequence MR images of the right hip were obtained following intra-articular administration of gadolinium contrast (see separately dictated procedure note for details). Images were then viewed on the PACS workstation in the axial, coronal and sagittal planes. COMPARISON: None available. FINDINGS: Bone: Marrow signal intensity is normal. Cartilage: There is partial thickness cartilage loss in the acetabulum superiorly. No loose bodies are seen. Labrum: Anterior superior labral tear is noted with a small para labral cyst. Femoroacetabular Impingement Assessment: Alpha Angle (normal= <55 degrees) : 56 degrees Lateral Center Edge Angle (normal=25-39 degrees): 57 degrees Extraarticular Hip Impingement: No osseous proliferation of the anterior inferior iliac spine. Iliopsoas tendon is unremarkable. No evidence of ischiofemoral imp ingement. Tendons: There is partial tearing of the gluteus minimus tendon insertion without retraction and of the hamstring tendon insertion without retraction.[facility] NAME: ABHI BAILEY [address] [facility] PHYS: DAMARIS - Jori Valera MD : [birth year]AGE: 63 SEX: F [place], [place] [address] LOC: JOSHUA BLAYNE NE #: [phone] EXAM DATE: 11/19/2018 STATUS: DEP CLI FAX #: [phone] RAD #: D/C DT PAGE 1 Signed Report (CONTINUED) Patient Name: ABHI BAILEY Unit No: [id number] EXAMS: CPT CODE: [id number] XR ARTHROGRAM HIP W/O AN RT+ 19482 <Continued> Bursitis: No significant trochanteric or iliopsoas bursitis. Muscles: Signal intensity and volume are preserved. Other: Partially visualized intrapelvic structures are unremarkable. IMPRESSION: Impingement with labral tearing and degenerative change. Also noted are partial thickness tendon tears. at 0748 Reported and signed by: Philip Alcantara MD CC: Jori Valera MD Technologist:SHERWIN GARCIA, RT(R) Transcribed D/ (0748) Larry [facility] NAME: ABHI BAILEY [address] [facility] PHYS: Jori Marquez MD : 1955 AGE: 63 SEX: F [place] [address] LOC: JOSHUA PHONE #: [phone] EXAM DATE: 11/19/2018 STATUS: DEP CLI FAX #: [phone] RAD #: D/C DT PAGE 2 Signed Report Patient Name: ABHI BAILEY Unit No: [id number] EXAMS: CPT CODE: [id number] XR ARTHROGRAM HIP W/O AN RT+ 57816 <Continued> Orig Print D/T:S: 11/22/2018 (0752) [facility] NAME: ABHI BAILEY [address] [facility] PHYS: Jori Marquez MD : 1955 AGE: 63 SEX: F [place] [address] LOC: Jose AlejandroRAD PHONE #: [phone] EXAM DATE: 11/19/2018 STATUS: DEP CLI FAX #: [phone] #: D/C DT PAGE 3 Signed Report
--- NOTE | 2021-10-23 20:31 | EDPHYS ---
Physician Documentation [facility] Name: Mamie Jolly Age: 65 yrs Sex: Female : 1955 Arrival Date: 10/23/2021 Time: 17:22 Bed 17 Private MD: Chi Montiel V ED Physician Adenike Kimble HPI: 10/23 20:28 This 65 yrs old Female presents to ER via Wheelchair with complaints of low oxygen. sp3 20:28 65-year-old female with a history of diabetes, hyperlipidemia, hypothyroid doses and sp3 COVID-19 diagnosed approximately 7 days ago currently on prednisone presents to the ED for low pulse ox reading at home of 91 to 92%. Pulse oxygenation readings here in the emergency department have been 96 to 98% consistently after multiple readings. Patient also states that she has increased cough and mild shortness of breath. On ROS, patient denies headache, neck pain, abdominal pain, nausea, vomiting, diarrhea, back pain, syncope, near syncope, neuro symptoms, rash, fever, any other symptoms at this time.. Historical: - Allergies: 18:02 HORSE/EQUINE PRODUCT DERIVATIVES; jl7 - PMHx: 18:02 Diabetes - IDDM; Diabetes - NIDDM; Hyperlipidemia; Hypothyroidism; neuropathy; jl7 - PSHx: 18:02 knee; parathyroid tumor; jl7 - Immunization history:: Client reports having NOT received the Covid vaccine. - Social history:: Smoking status: Patient denies any tobacco usage or history of. ROS: 20:29 Constitutional: Negative for fever, chills, and weight loss, Eyes: Negative for injury, sp3 pain, redness, and discharge, ENT: Negative for injury, pain, and discharge, Neck: Negative for injury, pain, and swelling, Cardiovascular: Negative for chest pain, palpitations, and edema, Abdomen/GI: Negative for abdominal pain, nausea, vomiting, diarrhea, and constipation, MS/Extremity: Negative for injury and deformity, Skin: Negative for injury, rash, and discoloration, Neuro: Negative for headache, weakness, numbness, tingling, and seizure, Psych: Negative for depression, anxiety, suicide ideation, homicidal ideation, and hallucinations, Allergy/Immunology: Negative for hives, rash, and allergies, Endocrine: Negative for neck swelling, polydipsia, polyuria, polyphagia, and marked weight changes. 20:29 All other systems are negative. Exam: 20:29 Constitutional: This is a well developed, well nourished patient who is awake, alert, sp3 and in no acute distress. Head/Face: Normocephalic, atraumatic. Neck: Trachea midline, no thyromegaly or masses palpated, and no cervical lymphadenopathy. Supple, full range of motion without nuchal rigidity, or vertebral point tenderness. No Meningismus. Chest/axilla: Normal chest wall appearance and motion. Nontender with no deformity. No lesions are appreciated. Cardiovascular: Regular rate and rhythm with a normal S1 and S2. No gallops, murmurs, or rubs. Normal PMI, no JVD. No pulse deficits. Abdomen/GI: Soft, non-tender, with normal bowel sounds. No distension or tympany. No guarding or rebound. No evidence of tenderness throughout. Skin: Warm, dry with normal turgor. Normal color with no rashes, no lesions, and no evidence of cellulitis. MS/ Extremity: Pulses equal, no cyanosis. Neurovascular intact. Full, normal range of motion. Neuro: Awake and alert, GCS 15, oriented to person, place, time, and situation. Cranial nerves II-XII grossly intact. Motor strength 5/5 in all extremities. Sensory grossly intact. Cerebellar exam normal. Normal gait. Psych: Awake, alert, with orientation to person, place and time. Behavior, mood, and affect are within normal limits. 20:29 Respiratory: Breath sounds equal bilaterally with scattered wheezes. No rales or rhonchi noted. Respiratory effort is normal. Respiratory rate is normal. Pulse oxygenation is 98% on room air.. Vital Signs: 18:00 BP 102 / 73; Pulse 73; Resp 17; Temp 97.5; Pulse Ox 98% on R/A; Weight 74.39 kg; Height jl7 4 ft. 10 in. (147.32 cm); Pain 0/10; 18:00 Body Mass Index 34.28 (74.39 kg, 147.32 cm) jl7 MDM: 20:14 Patient medically screened. sp3 20:30 Data reviewed: vital signs, nurses notes. ED course: Chest x-ray demonstrates bilateral sp3 viral pneumonia pattern without evidence of significant abnormality. Will discharge patient with reassurance and follow-up with PCP. No further intervention is necessary in the emergency department. Patient is already on antibiotics by her PCP as well as steroids. She is also already on nebulizer every 4 hours as needed cough/wheezing.. 10/23 19:06 Order name: Chest Pa And Lat (2 Views) XRAY kb Administered Medications: No medications were administered Disposition Summary: 10/23/21 20:31 Discharge Ordered Location: Home sp3 Condition: Stable sp3 Diagnosis - SARS-associated coronavirus as the cause of diseases classified elsewhere sp3 - Pneumonia due to SARS-associated coronavirus sp3 Followup: sp3 - With: Private Physician - When: Upon discharge from the Emergency Department - Reason: Continuance of care Discharge Instructions: - Discharge Summary Sheet sp3 - COVID-19 sp3 Forms: - Medication Reconciliation Form sp3 - Thank You Letter sp3 - Antibiotic Education sp3 - Prescription Opioid Use sp3 Signatures: Dispatcher [employer] Maeve Badillo RN RN jl7 Adenike Kimble MD MD sp3
--- NOTE | 2021-10-23 20:31 | ER ---
Nurse's Notes [facility] Name: Mamie Jolly Age: 65 yrs Sex: Female : 1955 Arrival Date: 10/23/2021 Time: 17:22 Bed 17 Private MD: Chi Montiel V Diagnosis: SARS-associated coronavirus as the cause of diseases classified elsewhere;Pneumonia due to SARS-associated coronavirus Presentation: 10/23 18:00 Chief complaint: Patient states: Tested positive fore covid 1 week ago, oxygen got to jl7 91%, pt reports fatigue and shortness of breath with exertion. Coronavirus screen: Vaccine status: Patient reports being unvaccinated. cough unrelated to allergies, shortness of breath, Client presents with at least one sign or symptom that may indicate coronavirus-19. Standard/surgical mask placed on the client. Provider contacted for isolation considerations. Ebola Screen: No symptoms or risks identified at this time. Initial Sepsis Screen: Does the patient meet any 2 criteria? No. Patient's initial sepsis screen is negative. Does the patient have a suspected source of infection? No. Patient's initial sepsis screen is negative. Risk Assessment: Do you want to hurt yourself or someone else? Patient reports no desire to harm self or others. Onset of symptoms was October 09, 2021. 18:00 Method Of Arrival: Wheelchair jl7 18:00 Acuity: CAROLYN 3 jl7 Triage Assessment: 18:02 General: Appears in no apparent distress. uncomfortable, Behavior is calm, cooperative, jl7 appropriate for age. Pain: Denies pain. Neuro: Level of Consciousness is awake, alert, obeys commands, Oriented to person, place, time, situation. Cardiovascular: Patient's skin is warm and dry. Respiratory: Airway is patent Respiratory effort is even, unlabored, Respiratory pattern is regular, symmetrical. Derm: Skin is pink, warm \T\ dry. Historical: - Allergies: 18:02 HORSE/EQUINE PRODUCT DERIVATIVES; jl7 - PMHx: 18:02 Diabetes - IDDM; Diabetes - NIDDM; Hyperlipidemia; Hypothyroidism; neuropathy; jl7 - PSHx: 18:02 knee; parathyroid tumor; jl7 - Immunization history:: Client reports having NOT received the Covid vaccine. - Social history:: Smoking status: Patient denies any tobacco usage or history of. Screenin:04 Abuse screen: Denies threats or abuse. Denies injuries from another. Nutritional kd3 screening: No deficits noted. Tuberculosis screening: No symptoms or risk factors identified. Fall Risk None identified. Vital Signs: 18:00 BP 102 / 73; Pulse 73; Resp 17; Temp 97.5; Pulse Ox 98% on R/A; Weight 74.39 kg; Height jl7 4 ft. 10 in. (147.32 cm); Pain 0/10; 18:00 Body Mass Index 34.28 (74.39 kg, 147.32 cm) jl7 ED Course: 17:22 Patient arrived in ED. am2 17:22 Chi Montiel MD is Private Physician. am2 18:02 Triage completed. jl7 18:02 Arm band placed on right wrist. jl7 19:21 Chest Pa And Lat (2 Views) XRAY In Process Unspecified. EDMS 20:05 Adenike Kimble MD is Attending Physician. sp3 20:27 Roseanne Corcoran, ZENAIDA is Primary Nurse. kd3 21:04 No provider procedures requiring assistance completed. Patient did not have IV access kd3 during this emergency room visit. 21:05 Patient has correct armband on for positive identification. Call light in reach. Side kd3 rails up X 1. Administered Medications: No medications were administered Outcome: 20:31 Discharge ordered by . sp3 21:05 Patient left the ED. kd3 Signatures: Dispatcher [employer] EDMS Maeve Love RN RN jl7 Deena Elena am2 Adenike Kimble MD MD sp3 Roseanne Corcoran RN RN kd3
--- NOTE | 2021-10-23 20:37 | RAD REPORT ---
EXAM DESCRIPTION: RAD - Chest Pa And Lat (2 Views) - 10/23/2021 7:21 pm CLINICAL HISTORY: DYSPNEA COMPARISON: Chest Single View dated 10/15/2018; Chest Single View dated 02/24/2017; Chest Pa And Lat (2 Views) dated 02/23/2017 FINDINGS: Lines: None. Lungs: Patchy bilateral airspace opacities. Pleural: No significant pleural effusions or pneumothorax. Cardiac: The heart size is within normal limits. Bones: No acute fractures. Other: IMPRESSION: Patchy bilateral airspace disease concerning for multifocal pneumonia, particularly Covi d-19.
[2021-10-23 21:45] VITALS: BP 102/73; TEMP 97.5; O2SAT 98
== END 2021-10-23 21:05 | disposition home or self-care (01) ==
LOC: ER 17:19
DX: U07.1 COVID-19 (principal); J12.82 Pneumonia due to coronavirus disease 2019; E11.40 Type 2 diabetes mellitus with diabetic neuropathy, unspecified; Z88.8 Allergy status to other drugs, medicaments and biological substances
CPT/HCPCS: 71046; 99282

== ENCOUNTER 2021-11-08 13:31 | Emergency (ER) | payer OTHER ==
--- OUTSIDE RECORDS SUMMARY | 2021-11-08 13:35 | XMS REPORT | Continuity of Care Document ---
:1955 Author Organization [facility] t Address [address] [place] [address] Care Team Providers Name Role Phone Tiana Cordero Primary Care Physician Doctor Unassigned, Name Attending Clinician Unavailable HU Attending Clinician Unavailable Payers Payer Name Policy Type Policy Number Effective Date Expiration Date Amanda POP O [id number] 2000 00:00:00 Problems Condition Condition Condition Status Onset Resolution Last Treating Co mments Source Name Details Category Date Date Treatment Clinician Date No known No known Disease Unive rs active active ity of problems problems [facility] Allergies, Adverse Reactions, Alerts Allergy Allergy Status [...] Products Hospita l Horse/Eq DA Active U 2018-0 [facility] uine 2-08 [place] Containi 00:00: Orthope ng 00 dic Products Hospita l Horse/Eq DA Active U 0 [facility] uine 2-16 [place] Containi 00:00: Orthope ng 00 dic Products Hospita l Equine Propensi Active Unknown - Childhood Un vance Protein ty to See comments 9-10 ity of adverse 00:00: [place] reaction 00 Medical s Branch Social History Social Habit Start Date Stop Date Quantity Comments Source Sex Assigned At [birth year] [facility] 00:00:00 00:00:00 Medical [place] Smoking Status Start Date Stop Date Source Unknown if ever smoked [facility] Medications Ordered Filled Start Stop Current Ordering Indication Dosage Frequency Signature Comments Components Source Medication Medication Date Date Medication? Clinician (SIG) Name Name GABAPENTIN Yes Take by Uni vers ORAL 9-10 mouth. ity of 20:39: [address] DULOXETINE Yes Take by Uni vers HCL 9-10 mouth. ity of (CYMBALTA 20:39: [address] TOPIRAMATE Yes Take by Uni vers (TOPAMAX 9-10 mouth. ity of ORAL) 20:39: [address] LIRAGLUTIDE Yes inject Univ ers (VICTOZA 9-10 under the ity of 2-DAISY SC) 20:39: skin. [address] OMEPRAZOLE, Yes Univer s BULK, MISC 9-10 ity of 20:39: [address] LISINOPRIL Yes Take by Uni vers ORAL 9-10 mouth. ity of 20:39: [address] ERGOCALCIFE Yes Take by Un vance ROL, 9-10 mouth. ity of VITAMIN D2, 20:39: [place] (VITAMIN D Medical ORAL) [place] etodolac Yes 300mg Take 1 Univer s (LODINE) 9-10 capsule by ity o f 300 mg 00:00: mouth 3 [place] capsule 00 (three) Medical times Branch daily with meals. acetaminoph Yes 1{tbl} Take 1 Un vance en-codeine 9-10 tablet by ity of (TYLENOL-CO 00:00: mouth [place] DEINE #3) 00 every 6 Medical 300-30 mg (six) Branch tablet hours as needed for Pain (scale 4-6). Immunizations Ordered Filled Immunization Date Status Comments Sour e Immunization Name Name Td 2016-06-21 Completed [facility] 00:00:00 [facility] Vital Signs Vital Name Observation Time Observation Value Comments Source HEIGHT 2020-07-17 08:01:39 146.6 cm WEIGHT 2020-07-17 08:01:39 87.7 kg Procedures Procedure Date / Time Performed Performing Clinician [facility] e REFERRAL- 2021-10-18 06:01:00 Doctor Unassigned, No [facility] REQUEST/RESPONSE Name [facility] Encounters Start End Encounter Admission Attending Care Care Encounter Source Date/Time Date/Time Type Type Clinicians Facility Department ID 2021-10-18 2021-10-18 Orders Doctor YAMILETH [id number] Univers 00:00:00 00:00:00 Only Unassigned, CRISTINE [id number] ity of [facility] [id number] Ehsan as [id number] [facility] dang 009 Branch 2020-07-17 2020-07-18 Outpatient HOLLY CANCINO MDA KUMAR [id number] 07:50:48 07:07:13 Miki o andrew 2020-07-16 2020-07-16 Outpatient HOLLY CANCINO MDA KUMAR [id number] MD 07:51:13 23:59:00 Miki o andrew 2020-07-16 2020-07-16 Outpatient HOLLY CANCINO MDA KUMAR [id number] MD 08:55:40 08:55:40 Miki o andrew 2020-07-16 2020-07-16 Outpatient HOLLY CANCINO MDA KUMAR [id number] MD 08:15:24 08:15:24 Miki o andrew Results Test Description Test Time Test Comments Results Result [facility] e Comments - XR FLUORO NDL 2019-08-31 Patient Name: 19:48:00 ABHI BAILEY Unit No: [id number] EXAMS: CPT CODE: [id number] XR FLUORO NDL 92979 Fluoroscopically guided injection of the left first [...] Technologist: RT Jane.(R) Transcribed D/ (1947) [email or web address] [facility] NAME: ABHI BAILEY [address] [facility] PHYS: Steve Wooten MD : 1955 AGE: 63 SEX: F [place] [address] LOC: Y.RAD PHONE #: [phone] EXAM DATE: 08/30/2019 STATUS: DEP CLI FAX #: [phone] RAD #: D/C DT PAGE 1 Signed Report Patient Name: ABHI BAILEY Unit No: [id number] EXAMS: CPT CODE: [id number] XR FLUORO NDL 53001 <Continued> Orig Print D/T: S: 08/31/2019 (1950) [facility] NAME: ABHI BAILEY [address] [facility] PHYS: Steve Wooten MD : 1955 AGE: 63 SEX: F [place] [address] LOC: Y.RAD PHONE #: [phone] EXAM DATE: 08/30/2019 STATUS: DEP CLI FAX #: [phone] RAD #: D/C DT PAGE 2 Signed Report - XR FLUOROSCOPY 2019-08-17 Patient Name: 0-60 MIN 09:37:00 ABHI BAILEY Unit No: [id number] EXAMS: CPT CODE: [id number] XR FLUOROSCOPY 0-60 MIN 84911 PROCEDURE: Right-sided radiofrequency ablation of the genicular [...] Technologist: KELLEY ROWLEY RT(R) Transcribed D/ (0937) Brigitte.[facility] NAME: ABHI BAILEY [address] [facility] PHYS: OLIVA - Ayan Mendoza : 1955 AGE: 63 SEX: F [place], [place] [address] LOC: Jose AlejandroOSU PHONE #: [phone] EXAM DATE: 08/08/2019 STATUS: [facility] FAX #: [phone] RAD #: D/C DT PAGE 1 Signed Report Patient Name: ABHI BAILEY Unit No: [id number] EXAMS: CPT CODE: [id number] XR FLUOROSCOPY 0-60 MIN 45064 <Continued> Orig Print D/T: S: 08/17/2019 (0940) [facility] NAME: ABHI BAILEY [address] [facility] PHYS: JONST.Ayan Anthony Daniel : 1955 AGE: 63 SEX: F [place], [place] [address] LOC: Jose AlejandroOSU PHONE #: [phone] EXAM DATE: 08/08/2019 STATUS: [facility] FAX #: [phone] RAD #: D/C DT PAGE 2 Signed Report - XR FLUORO NDL 2019-08-17 Patient Name: 09:35:00 ABHI BAILEY Unit No: [id number] EXAMS: CPT CODE: [id number] XR FLUORO NDL 18567 PROCEDURE: Marcaine block of the right genicular [...] Crabtree MD Technologist: Ethan Mills(R) Transcribed D/ (0416) IleneSLJ [facility] NAME: ABHI BAILEY [address] [facility] PHYS: MICHAEL Temitope Crabtree : 1955 AGE: 63 SEX: F [place] [address] LOC: Y.RAD PHONE #: [phone] EXAM DATE: 08/03/2019 STATUS: DEP CLI FAX #: [phone] RAD #: D/C DT PAGE 1 Signed Report Patient Name: ABHI BAILEY Unit No: [id number] EXAMS: CPT CODE: [id number] XR FLUORO NDL 01507 <Continued> Orig Print D/T: S: 08/17/2019 (0939) [facility] NAME: ABHI BAILEY [address] [facility] PHYS: MICHAEL Temitope Crabtree : 1955 AGE: 63 SEX: F [place] [address] LOC: Y.RAD PHONE #: [phone] EXAM DATE: 08/03/2019 STATUS: DEP CLI FAX #: [phone] RAD #: D/C DT PAGE 2 Signed Report GLUBED 2019-08-08 16:02:00 Test Item Value Reference Range Interpretation Comme nts GLUBED (test code = GLUBED) 76 mg/dL 60-125 N [id number] 14:16:00 Test Item Value Reference Range Interpretation Comments GLUBED (test code = GLUBED) 84 mg/dL 60-125 N - MRI LOW EXT W/O CONT [id number] 14:38:00 Patient Name: ABHI BAILEY Unit No: [id number] EXAMS: CPT CODE: [id number] MRI LOW EXT W/[place] [address] MRI OF THE LEFT FOOT DIAGNOSIS: Degenerative [...] Colunga MD Technologist: Ethan Rg(R) Transcribed D/ (8207) DestinyL [facility] NAME: ABHI BAILEY [address] [facility] PHYS: Steve Wooten : 1955 AGE: 63 SEX: F [place] [address] LOC: Y.MRI PHONE #: [phone] EXAM DATE: 07/29/2019 STATUS: DEP CLI FAX #: [phone] RAD #: D/C DT PAGE 1 Signed Report Patient Name: ABHI BAILEY Unit No: [id number] EXAMS: CPT CODE: [id number] MRI LOW EXT W/[place] [address] <Continued> Orig Print D/T: S: 07/30/2019 (9573) [facility] NAME: ABHI BAILEY [address] [facility] PHYS: Steve Wooten Marc : 1955 AGE: 63 SEX: F [place] [address] LOC: Y.MRI PHON E #: [phone] EXAM DATE: 07/29/2019 STATUS: DEP CLI FAX #: [phone] RAD #: D/C DT PAGE 2 Signed [id number] 08:29:00 Test Item Value Reference Range Interpretation Comments GLUBED (test code = GLUBED) 97 mg/dL 60-125 N - XR FLUORO [id number] 17:21:00 Patient Name: ABHI BAILEY Unit No: [id number] EXAMS: CPT CODE: [id number] XR FLUORO NDL 65333 FLUOROSCOPICALLY GUIDED INJECTION OF THE RIGHT HIP [...] MD Technologist: Sadaf Nicole RT.(R) Transcribed D/ (3320) tMARYL [facility] NAME: ABHI BAILEY [address] [facility] PHYS: Temitope Roe : 1955 AGE: 63 SEX: F [place], [place] [address] LOC: Y.RAD PHONE #: [phone] EXAM DATE: 02/03/2019 STATUS: REG CLI FAX #: [phone] RAD #: D/C DT PAGE 1 Signed Report Patient Name: ABHI BAILEY Unit No: [id number] EXAMS: CPT CODE: [id number] XR FLUORO NDL 62534 <Continued> Orig Print D/T: S: 02/03/2019 (2844) [facility] NAME: ABHI BAILEY [address] [facility] PHYS: GOMMU.Temitope Cha : 1955 AGE: 63 SEX: F [place], [place] [address] LOC: JOSHUA PHONE #: [phone] EXAM DATE: 02/03/2019 STATUS: REG GENAI FAX #: [phone] RAD #: D/C DT PAGE 2 Signed Report- MRI LW JNT W/CONTRAST [id number] 07:48:00 Patient Name: ABHI BAILEY Unit No: [id number] EXAMS: CPT CODE: [id number] [place] LW JNT W/[place] [address] RIGHT HIP ARTHROGRAM STEROID AND LIDOCAINE INJECTION [...] and of the hamstring tendon insertion without retraction.[facility] NAME: ABHI BAILEY [address] [facility] PHYS: Jori Marquez MD : 1955GE: 63 SEX: F [place] [address] LOC: YHeleneRAD BLAYNE NE #: [phone] EXAM DATE: 11/19/2018 STATUS: DEP CLI FAX #: [phone] RAD #: D/C DT PAGE 1 Signed Report (CONTINUED) Patient Name: ABHI BAILEY Unit No: [id number] EXAMS: CPT CODE: [id number] [place] JNT W/[place] [address] <Continued> Bursitis: No significant trochanteric or iliopsoas bursitis. Muscles: Signal intensity and volume are preserved. Other: Partially visualized intrapelvic structures are unremarkable. IMPRESSION: Impingement with labral tearing and degenerative change. Also noted are partial thickness tendon tears. at 0788 Reported and signed by: Philip Alcantara MD CC: Jori Valera MD Technologist:JOSH VAN RT(R) Transcribed D/ (0748) Larry [facility] NAME: ABHI BAILEY [address] [facility] PHYS: Jori Marquez MD : 1955 AGE: 63 SEX: F [place] [address] LOC: Jose AlejandroRAD PHONE #: [phone] EXAM DATE: 11/19/2018 STATUS: STAR CLI FAX #: [phone] RAD #: D/C DT PAGE 2 Signed Report Patient Name: ABHI BAILEY Unit No: [id number] EXAMS: CPT CODE: [id number] MRI LW JNT W/[place] [address] <Continued> Orig Print D/T:S: 11/22/2018 (0752) [facility] NAME: ABHI BAILEY [address] [facility] PHYS: Jori Marquez MD : 1955 AGE: 63 SEX: F [place] [address] LOC: Y.RAD PHONE #: [phone] EXAM DATE: 11/19/2018 STATUS: DEP CLI FAX #: [phone] #: D/C DT PAGE 3 Signed Report- XR ARTHROGRAM HIP W/O AN RT+2018-11-22 07:48:00 Patient Name: ABHI BAILEY Unit No: [id number] EXAMS: CPT CODE: [id number] XR ARTHROGRAM HIP W/O AN RT+ 19987 RIGHT HIP ARTHROGRAM STEROID AND LIDOCAINE INJECTION [...] and of the hamstring tendon insertion without retraction.[facility] NAME: ABHI BAILEY [address] [facility] PHYS: DAMARIS - Jori Valera MD : [birth year]AGE: 63 SEX: F [place], [place] [address] LOC: JOSHUA BLAYNE NE #: [phone] EXAM DATE: 11/19/2018 STATUS: DEP CLI FAX #: [phone] RAD #: D/C DT PAGE 1 Signed Report (CONTINUED) Patient Name: ABHI BAILEY Unit No: [id number] EXAMS: CPT CODE: [id number] XR ARTHROGRAM HIP W/O AN RT+ 23630 <Continued> Bursitis: No significant trochanteric or iliopsoas bursitis. Muscles: Signal intensity and volume are preserved. Other: Partially visualized intrapelvic structures are unremarkable. IMPRESSION: Impingement with labral tearing and degenerative change. Also noted are partial thickness tendon tears. at 0748 Reported and signed by: Philip Alcantara MD CC: Jori Valera MD Technologist:SHERWIN GARCIA, RT(R) Transcribed D/ (0748) Larry [facility] NAME: ABHI BAILEY [address] [facility] PHYS: Jori Marquez MD : 1955 AGE: 63 SEX: F [place] [address] LOC: JOSHUA PHONE #: [phone] EXAM DATE: 11/19/2018 STATUS: DEP CLI FAX #: [phone] RAD #: D/C DT PAGE 2 Signed Report Patient Name: ABHI BAILEY Unit No: [id number] EXAMS: CPT CODE: [id number] XR ARTHROGRAM HIP W/O AN RT+ 47095 <Continued> Orig Print D/T:S: 11/22/2018 (0752) [facility] NAME: ABHI BAILEY [address] [facility] PHYS: Jori Marquez MD : 1955 AGE: 63 SEX: F [place] [address] LOC: Jose AlejandroRAD PHONE #: [phone] EXAM DATE: 11/19/2018 STATUS: DEP CLI FAX #: [phone] #: D/C DT PAGE 3 Signed Report
[2021-11-08 14:51] LABS: Absolute Lymphocytes (CBC) 0.9 K/uL (0.7-4.9); Hematocrit 37.2 % (36.0-45.0); MPV 8.3 fL (7.6-11.3)
[2021-11-08 14:52] LABS: Protime INR 1.17
[2021-11-08 15:00] LABS: ALT/SGPT 41 U/L (12-78); AST/SGOT 19 U/L (15-37); Albumin 2.6 g/dL (3.4-5.0); Alkaline Phosphatase 88 U/L (45-117); BUN Blood Urea Nitrogen 16 mg/dL (7-18); Bicarbonate 25 mmol/L (21-32); Bilirubin Direct < 0.1 mg/dL (0-0.2); Bilirubin Total 0.4 mg/dL (0.2-1.0); Glucose Level 110 mg/dL (74-106); Magnesium 2.1 mg/dL (1.8-2.4); NT PRO-BNP 1258 pg/mL (<125); Potassium 3.9 mmol/L (3.5-5.1); Protein, Total 7.3 g/dL (6.4-8.2); Sodium Level 139 mmol/L (136-145)
--- NOTE | 2021-11-08 15:11 | RAD REPORT ---
EXAM DESCRIPTION: CT - Chest For Pe Angio - 11/08/2021 2:47 pm CLINICAL HISTORY: Cough and shortness of breath COMPARISON: 2017 TECHNIQUE: Dynamically enhanced axial 3 mm thick images of the chest were obtained during administra tion of <100> mL Isovue 370 IV contrast. Coronal and oblique reconstruction images were generated and reviewed. Exam utilizes a protocol for optimal evaluation of pulmonary arterial tree. Maximum intensity projections 3D imaging was utilized All CT scans are performed using dose optimization technique as appropriate and may include automated exposure control or mA/KV adjustment according to patient size. FINDINGS: A pulmonary embolus is not seen. A thoracic aortic aneurysm is not noted. A pleural effusion is not seen. A pericardial effusion is not seen. Mild to moderate bilateral pulmonary opacities. IMPRESSION: Negative for a pulmonary embolism. Mild to moderate bilateral pulmonary opacities likely pneumonia
--- NOTE | 2021-11-08 15:46 | RAD REPORT ---
EXAM DESCRIPTION: Ulysses Single View11/08/2021 3:23 pm CLINICAL HISTORY: Cough COMPARISON: CT chest November 08, 2021 FINDINGS: Moderate bilateral pulmonary opacities probably pneumonia Heart is normal sized
[2021-11-08 15:47] LABS: SARS-COV-2 RT PCR NEGATIVE (NEGATIVE)
[2021-11-08] MEDS ORDERED: CEFTRIAXONE 1000 MG/VIAL ONE (15:59)
[2021-11-08] MEDS ORDERED: NA CHLORIDE 0.9% 100 ML ONE (15:59)
--- NOTE | 2021-11-08 16:11 | EDPHYS ---
Physician Documentation [facility] Name: Mamie Jolly Age: 66 yrs Sex: Female : 1955 Arrival Date: 11/08/2021 Time: 13:39 Bed 16 Private MD: ED Physician Petey Schulz HPI: 11/08 15:17 This 66 yrs old Female presents to ER via Ambulatory with complaints of issue with kb lungs. 15:17 The patient or guardian reports cough, that is intermittent, described as moderate, kb difficulty breathing. Onset: The symptoms/episode began/occurred 1 month(s) ago. Severity of symptoms: At their worst the symptoms were moderate, in the emergency department the symptoms are unchanged. Modifying factors: The symptoms are alleviated by nothing, the symptoms are aggravated by nothing. Associated signs and symptoms: Pertinent positives: fever, Pertinent negatives: chest pain, diarrhea, ear ache, nausea, rhinorrhea, sore throat, vomiting. The patient has not experienced similar symptoms in the past. The patient has been recently seen by a physician:. Pt reports cough and shortness of breath for a month. Was diagnosed with covid on 10/16/21 and symptoms have never gone away completely. STates her fever went away for a while, but came back this week. Had abnormal x-ray yesterday and was told to come to the ER today for CT scan. Historical: - Allergies: 14:01 HORSE/EQUINE PRODUCT DERIVATIVES; ap3 - Home Meds: 14:01 levothyroxine 50 mcg tab 1 tab once daily [Active]; gabapentin Oral twice a day ap3 [Active]; omeprazole 40 mg Oral cpDR 1 cap once daily [Active]; clopidogrel 75 mg oral tab [Active]; colchicine 0.6 mg Oral cap [Active]; 14:04 hydroxychloroquine oral [Active]; ap3 - PMHx: 14:01 Diabetes - IDDM; Diabetes - NIDDM; Hyperlipidemia; Hypothyroidism; neuropathy; ap3 - PSHx: 14:01 knee; parathyroid tumor; ap3 - Immunization history:: Client reports having NOT received the Covid vaccine. - Social history:: Smoking status: Patient denies any tobacco usage or history of. ROS: 15:16 Respiratory: Positive for cough, dyspnea on exertion, shortness of breath. kb 15:16 All other systems are negative. 15:16 Abdomen/GI: Negative for abdominal pain, nausea, vomiting, diarrhea, and constipation. kb 15:16 Constitutional: Positive for fever. Exam: 15:15 Constitutional: This is a well developed, well nourished patient who is awake, alert, kb and in no acute distress. Head/Face: Normocephalic, atraumatic. ENT: Moist Mucous membranes Cardiovascular: Regular rate and rhythm with a normal S1 and S2. No gallops, murmurs, or rubs. No pulse deficits. Respiratory: Respirations even and unlabored. No increased work of breathing. Talking in full sentences Skin: Warm, dry with normal turgor. Normal color. MS/ Extremity: Pulses equal, no cyanosis. Neurovascular intact. Full, normal range of motion. Neuro: Awake and alert, GCS 15, oriented to person, place, time, and situation. Moves all extremities. Normal gait. Psych: Awake, alert, with orientation to person, place and time. Behavior, mood, and affect are within normal limits. 15:15 ECG was reviewed by the Attending Physician. Vital Signs: 13:59 BP 97 / 62; Pulse 85; Resp 16; Temp 98.2; Pulse Ox 96% on R/A; Weight 71.67 kg; Height ap3 4 ft. 10 in. (147.32 cm); 15:33 BP 94 / 53; Pulse 84; Resp 16; Pulse Ox 96% on R/A; ic1 16:19 BP 100 / 62; Pulse 83; Resp 18; Pulse Ox 96% ; ic1 13:59 Body Mass Index 33.02 (71.67 kg, 147.32 cm) ap3 MDM: 14:06 Patient medically screened. kb 15:16 Data reviewed: vital signs, nurses notes. Data interpreted: Pulse oximetry: on room air kb is 96 %. Interpretation: normal. 15:49 Counseling: I had a detailed discussion with the patient and/or guardian regarding: the kb historical points, exam findings, and any diagnostic results supporting the discharge/admit diagnosis, lab results, radiology results, the need for outpatient follow up, a family practitioner. 11/08 14:23 Order name: Basic Metabolic Panel kb 11/08 14:23 Order name: CBC with Diff 11/08 14:23 Order name: LFT's 11/08 14:23 Order name: Magnesium kb 11/08 14:23 Order name: NT PRO-BNP; Complete Time: 15:02 kb 11/08 14:23 Order name: PT-INR; Complete Time: 14:54 kb 11/08 14:23 Order name: Troponin HS; Complete Time: 15:02 kb 11/08 14:23 Order name: Procalcitonin; Complete Time: 15:19 kb 11/08 14:23 Order name: Blood Culture Adult (2) kb 11/08 14:23 Order name: Lactate; Complete Time: 15:02 kb 11/08 14:23 Order name: COVID-19/FLU A+B (Document "Date of Onset" if Symptomatic); Complete Time: kb 15:48 11/08 14:23 Order name: Basic Metabolic Panel; Complete Time: 15:02 EDMS 11/08 14:23 Order name: CBC with Automated Diff; Complete Time: 14:54 EDMS 11/08 14:23 Order name: Liver (Hepatic) Function; Complete Time: 15:02 EDMS 11/08 14:23 Order name: XRAY Chest (1 view); Complete Time: 15:48 kb 11/08 14:23 Order name: EKG; Complete Time: 14:23 kb 11/08 14:23 Order name: Cardiac monitoring; Complete Time: 15:24 kb 11/08 14:23 Order name: EKG - Nurse/Tech; Complete Time: 14:35 kb 11/08 14:23 Order name: IV Saline Lock; Complete Time: 15:24 kb 11/08 14:23 Order name: Labs collected and sent; Complete Time: 14:35 kb 11/08 14:23 Order name: O2 Per Protocol; Complete Time: 15:24 kb 11/08 14:23 Order name: O2 Sat Monitoring; Complete Time: 15:24 kb 11/08 14:23 Order name: CT Chest For PE Angio; Complete Time: 15:15 kb 11/08 14:23 Order name: Magnesium; Complete Time: 15:02 EDMS EC:15 Rate is 86 beats/min. Rhythm is regular. QRS [place] is Normal. MO interval is normal at kb 150 msec. QRS interval is normal at 80 msec. QT interval is normal at 360 msec. Administered Medications: 16:00 Drug: Rocephin (cefTRIAXone) 1 grams Route: IV; Rate: bolus; Site: left antecubital; ic1 Delivery: Primary tubing; 16:19 Follow up: IV Status: Completed infusion; IV Intake: 100ml ic1 Disposition: 19:09 Co-signature as Attending Physician, Petey Schulz MD I agree with the assessment and kdr plan of care. Disposition Summary: 11/08/21 16:11 Discharge Ordered Location: Home kb Condition: Stable kb Diagnosis - Pneumonia, unspecified organism kb Followup: kb - With: Emergency Department - When: As needed - Reason: Worsening of condition Followup: kb - With: Private Physician - When: 2 - 3 days - Reason: Recheck today's complaints, Continuance of care, Re-evaluation by your physician Discharge Instructions: - Discharge Summary Sheet kb - Community-Acquired Pneumonia, Adult, [id number] kb Forms: - Medication Reconciliation Form kb - Thank You Letter kb - Antibiotic Education kb - Prescription Opioid Use kb Prescriptions: - Zithromax 500 mg Oral Tablet - take 1 tablet by ORAL route once daily for 5 days; 5 tablet; Refills: 0, kb Product Selection Permitted Signatures: Dispatcher [employer] EDMS Luz Marina Chacon, HAND STRAIGHTENER-C HAND STRAIGHTENER-Petey Mckeon MD MD kdr Prokisch, Amanda RN RN ap3 Iva Brand RN RN ic1 Corrections: (The following items were deleted from the chart) 15:17 15:16 Constitutional: Negative for fever, chills, and weight loss, kb kb
--- NOTE | 2021-11-08 16:11 | ER ---
Nurse's Notes [facility] Name: Mamie Jolly Age: 66 yrs Sex: Female : 1955 Arrival Date: 11/08/2021 Time: 13:39 Bed 16 Private MD: Diagnosis: Pneumonia, unspecified organism Presentation: 11/08 13:59 Chief complaint: Patient states: patient states she was sent by her PCP for abnormal ap3 X-ray results. Patient states that she has been experiencing shortness of breath for approx one month, and her PCP sent her for the X-Ray. Patient reports that her PCP wants to rule out blood clots in her lungs. Coronavirus screen: At this time, the client does not indicate any symptoms associated with coronavirus-19. Ebola Screen: No symptoms or risks identified at this time. Initial Sepsis Screen: Does the patient meet any 2 criteria? No. Patient's initial sepsis screen is negative. Does the patient have a suspected source of infection? No. Patient's initial sepsis screen is negative. Risk Assessment: Do you want to hurt yourself or someone else? Patient reports no desire to harm self or others. Onset of symptoms was October 08, 2022. 13:59 Method Of Arrival: Ambulatory ap3 13:59 Acuity: CAROLYN 3 ap3 Triage Assessment: 14:04 General: Appears in no apparent distress. Behavior is calm, cooperative, appropriate ap3 for age. Pain: Denies pain. Neuro: Level of Consciousness is awake, alert, obeys commands, Oriented to person, place, time, situation, Appropriate for age. Cardiovascular: Patient's skin is warm and dry. Respiratory: Reports shortness of breath cough that is Airway is patent Respiratory effort is even, unlabored, Respiratory pattern is regular, symmetrical. Historical: - Allergies: 14:01 HORSE/EQUINE PRODUCT DERIVATIVES; ap3 - Home Meds: 14:01 levothyroxine 50 mcg tab 1 tab once daily [Active]; gabapentin Oral twice a day ap3 [Active]; omeprazole 40 mg Oral cpDR 1 cap once daily [Active]; clopidogrel 75 mg oral tab [Active]; colchicine 0.6 mg Oral cap [Active]; 14:04 hydroxychloroquine oral [Active]; ap3 - PMHx: 14:01 Diabetes - IDDM; Diabetes - NIDDM; Hyperlipidemia; Hypothyroidism; neuropathy; ap3 - PSHx: 14:01 knee; parathyroid tumor; ap3 - Immunization history:: Client reports having NOT received the Covid vaccine. - Social history:: Smoking status: Patient denies any tobacco usage or history of. Screenin:03 Abuse screen: Denies threats or abuse. Nutritional screening: Had unintentional weight ap3 loss of 10 pounds or more. Tuberculosis screening: No symptoms or risk factors identified. 15:09 Fall Risk None identified. ic1 Assessment: 14:35 General: Appears in no apparent distress. comfortable, Behavior is calm, cooperative. ic1 15:09 Pain: Denies pain. Neuro: Level of Consciousness is awake, alert, obeys commands, ic1 Oriented to person, place, time, situation, Reports She was told to come to ED by pcp d/t possible PE and still reports not feeling well since covid diagnosis x 2 weeks ago. . Cardiovascular: No deficits noted. Cardiovascular: Rhythm is sinus rhythm. Respiratory: Reports shortness of breath on exertion cough that is productive, persistent. GI: No deficits noted. : No deficits noted. Derm: No deficits noted. Musculoskeletal: No deficits noted. Vital Signs: 13:59 BP 97 / 62; Pulse 85; Resp 16; Temp 98.2; Pulse Ox 96% on R/A; Weight 71.67 kg; Height ap3 4 ft. 10 in. (147.32 cm); 15:33 BP 94 / 53; Pulse 84; Resp 16; Pulse Ox 96% on R/A; ic1 16:19 BP 100 / 62; Pulse 83; Resp 18; Pulse Ox 96% ; ic1 13:59 Body Mass Index 33.02 (71.67 kg, 147.32 cm) ap3 ED Course: 13:39 Patient arrived in ED. ds1 14:01 Triage completed. ap3 14:05 Luz Marina Chacon [facility]C [facility] kb 14:05 Petey Schulz MD is Attending Physician. kb 14:05 Arm band placed on right wrist. ap3 14:12 Iva Brand, ZENAIDA is Primary Nurse. ic1 14:34 Magnesium Sent. ic1 14:34 Liver (Hepatic) Function Sent. ic1 14:34 CBC with Automated Diff Sent. ic1 14:34 Basic Metabolic Panel Sent. ic1 14:34 Lactate Sent. ic1 14:34 Procalcitonin Sent. ic1 14:34 Basic Metabolic Panel Sent. ic1 14:34 CBC with Diff Sent. ic1 14:34 LFT's Sent. ic1 14:34 Magnesium Sent. ic1 14:35 Inserted saline lock: 20 gauge in right antecubital area, using aseptic technique. ic1 Blood collected. 14:44 Blood Culture Adult (2) Sent. ic1 14:46 CT Chest For PE Angio In Process Unspecified. EDMS 15:09 Patient has correct armband on for positive identification. Bed in low position. Call ic1 light in reach. Side rails up X2. 15:23 XRAY Chest (1 view) In Process Unspecified. EDMS 16:20 IV discontinued, intact, bleeding controlled, No redness/swelling at site. Pressure ic1 dressing applied. Administered Medications: 16:00 Drug: Rocephin (cefTRIAXone) 1 grams Route: IV; Rate: bolus; Site: left antecubital; ic1 Delivery: Primary tubing; 16:19 Follow up: IV Status: Completed infusion; IV Intake: 100ml ic1 Intake: 16:19 IV: 100ml; Total: 100ml. ic1 Outcome: 16:11 Discharge ordered by . kb 16:20 Discharged to home ambulatory, with family. ic1 16:20 Condition: stable 16:20 Discharge instructions given to patient, family, Instructed on discharge instructions, follow up and referral plans. Demonstrated understanding of instructions, follow-up care, medications, Prescriptions given X 1. 16:32 Patient left the ED. ic1 Signatures: Dispatcher [employer] EDMS Luz Marina Chacon, NELY DICKSON-Adela Mcdermott ds1 Deena Whitehead RN RN [id number] Iva Brand RN RN ic1 Corrections: (The following items were deleted from the chart) 15:18 14:35 General: Appears ic1 ic1
[2021-11-08 16:44] VITALS: TEMP 98.2; O2SAT 96
[2021-11-08 16:47] VITALS: BP 100/62
== END 2021-11-08 16:32 | disposition home or self-care (01) ==
LOC: ER 13:31
DX: J18.9 Pneumonia, unspecified organism (principal); E11.9 Type 2 diabetes mellitus without complications; Z91.048 Other nonmedicinal substance allergy status; Z20.822 Contact with and (suspected) exposure to COVID-19
CPT/HCPCS: 96365; 93005; 87040 ×2; 85025; 80048; 36415; 83735; 85610; 80076; 83605; 84484; 84145; 83880; 0240U; 71275; 71045; 99284